=== PATIENT | female | born 1975 | race Caucasian/White ===

== ENCOUNTER 2024-02-10 23:10 | Emergency (ER) | payer SELFPAY ==
[~2024-02-10] VITALS: Ht 167.6 cm; Wt 75.0 kg
[2024-02-10 23:16] VITALS: BP 114/72; PULSE 109; RESP 20; TEMP 98.4; O2SAT 100
== END 2024-02-11 04:00 | disposition left against medical advice (07) ==
LOC: ER 23:10
DX: F41.9 Anxiety disorder, unspecified (principal); R06.02 Shortness of breath; D64.9 Anemia, unspecified; F32.9 Major depressive disorder, single episode, unspecified; I10 Essential (primary) hypertension
CPT/HCPCS: 99283